=== PATIENT | male | born 1985 | race Caucasian/White ===

== ENCOUNTER 2017-07-30 21:49 | Emergency (ER) | payer OTHER ==
[2017-07-30 22:09] VITALS: BP 144/85; PULSE 67; RESP 17; TEMP 97.2
--- NOTE | 2017-07-30 22:18 | ED ---
ENT HPI - General Chief complaint: ENT Stated complaint: Ear Pain Time Seen by Provider: 07/30/17 22:02 Source: patient, family, RN notes reviewed, old records reviewed Mode of arrival: ambulatory Limitations: no limitations - History of Present Illness Initial comments: This is a 32 year old male with CC of right ear pain for 2 days. Patient reports that his ear feels full, and having a hard time hearing out of it. Patient states that he has had a history of an ear infection a year ago, and does not want to go through the same pain again. Patient denies any fever, reports that he has not tried to clean his ears. Patient denies any cough, shorntess of breath, nausea, vomiting. - Related Data Previous Rx's Medication Instructions Recorded Hydrocodone/Acetaminophen [[place] 1 each PO Q6HR PRN #10 tab 06/08/15 5-325] Amoxic-Pot Clav 875-125Mg 1 tab PO Q12HR #20 tablet 07/30/17 [Augmentin 875-125] Ciprofloxacin Ophth Soln [Cipro 10 drops RIGHT EAR BID #1 bottle 07/30/17 Ophth Soln] Allergies Allergy/AdvReac Type Severity Reaction Status Date / Time No Known Allergies Allergy Verified 07/30/17 22:10 Review of Systems ROS Statement: Those systems with pertinent positive or pertinent negative responses have been documented in the HPI. ROS Other: All systems not noted in ROS Statement are negative. 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 Limitations: no limitations General appearance: alert, in no apparent distress Head exam: Present: atraumatic, normocephalic, normal inspection Eye exam: Present: normal appearance, PERRL, EOMI. Absent: scleral icterus, conjunctival injection, periorbital swelling ENT exam: Present: normal exam, mucous membranes moist, normal external ear exam. Absent: TM's normal bilaterally (erythematous Right TM. Bulging, effusion noted. ) Neck exam: Present: normal inspection. Absent: tenderness, meningismus, lymphadenopathy Respiratory exam: Present: normal lung sounds bilaterally. Absent: respiratory distress, wheezes, rales, rhonchi, stridor Cardiovascular Exam: Present: regular rate, normal rhythm, normal heart sounds. Absent: systolic murmur, diastolic murmur, rubs, gallop, clicks GI/Abdominal exam: Present: soft, normal bowel sounds. Absent: distended, tenderness, guarding, rebound, rigid Extremities exam: Present: normal inspection, full ROM, normal capillary refill. Absent: tenderness, pedal edema, joint swelling, calf tenderness Back exam: Present: normal inspection Neurological exam: Present: alert, oriented X3, CN II-XII intact Psychiatric exam: Present: normal affect, normal mood Skin exam: Present: warm, dry, intact, normal color. Absent: rash Course Vital Signs 07/30/17 22:02 Temperature 97.2 F L Pulse Rate 67 Respiratory 17 Rate Blood Pressure 144/85 O2 Sat by Pulse 97 Oximetry Medical Decision Making - Medical Decision Making This is a 32 year old male with CC of right ear pain for 2 days. Patient reports that his ear feels full, and having a hard time hearing out of it. Patient does have erythematous right TM. No evdience of perforation. Patent will be started on antibiotics. Discussed taking decongestants. REturn parameters discussed. Disposition Clinical Impression: Right otitis media Disposition: HOME SELF-CARE Condition: Good Instructions: Earache (ED) Additional Instructions: Is advised to take decongestant medications such as Mucinex DM or Claritin-D. Patient should completely antibiotic prescription. Return to the emergency department if any alarming signs or symptoms occur. Prescriptions: Amoxic-Pot Clav 875-125Mg [Augmentin 875-125] 1 tab PO Q12HR #20 tablet Ciprofloxacin Ophth Soln [Cipro Ophth Soln] 10 drops RIGHT EAR BID #1 bottle Referrals: None,Stated [Primary Care Provider] - 1-2 days Scout Huntley MD [STAFF PHYSICIAN] - 1-2 days Time of Disposition: 22:16
== END 2017-07-30 22:30 | disposition home or self-care (01) ==
LOC: EC 21:49
DX: H66.91 Otitis media, unspecified, right ear (principal); F17.200 Nicotine dependence, unspecified, uncomplicated
CPT/HCPCS: 99283

== ENCOUNTER 2019-09-09 17:44 | Emergency (ER) | payer OTHER ==
[2019-09-09 17:48] VITALS: BP 122/82; PULSE 87; RESP 20; TEMP 98.5
--- NOTE | 2019-09-09 18:00 | ED ---
General Adult HPI - General Chief complaint: Fever Stated complaint: hot and cold sweats, has pace maker, fever Time Seen by Provider: 09/09/19 17:53 Source: patient Mode of arrival: ambulatory Limitations: no limitations - History of Present Illness Initial comments: Dictation was produced using [employer] dictation software. please excuse any grammatical, word or spelling errors. Chief Complaint: 34-year-old male presents with URI symptoms for 2 days. History of Present Illness: 34-year-old male with past medical history of pacemaker. Patient states that he's been feeling sick for the last 48 hours. Patient significant other has similar symptoms. He went to play baseball today however felt too sick. Patient had a runny nose, productive cough. Denies chest pain. Probably short of breath. Patient also has body aches. Patient denies any nausea vomiting. No abdominal pain. Distally chills and fever at home. Patient has not been taking any medications to treat this. The ROS documented in this emergency department record has been reviewed and confirmed by me. Those systems with pertinent positive or negative responses have been documented in the HPI. All other systems are other negative and/or noncontributory. PHYSICAL EXAM: General Impression: Alert and oriented x3, not in acute distress HEENT: Normocephalic atraumatic, extra-ocular movements intact, pupils equal and reactive to light bilaterally, mucous membranes moist, mild oropharyngeal erythema, rhinorrhea present Cardiovascular: Heart regular rate and rhythm, S1&S2 audible, no murmurs, rubs or gallops Chest: Lungs clear to auscultation bilaterally, no rhonchi, no wheeze, no rales Abdomen: Bowel sounds present, abdomen soft, non-tender, non-distended, no organomegaly Musculoskeletal: Pulses present and equal in all extremities, no peripheral edema Motor: no focal deficits noted Neurological: CN II-XII grossly intact, no focal motor or sensory deficits noted Skin: Intact with no visualized rashes Psych: Normal affect and mood ED course: 34 yoOld male with clinical presentation consistent with viral URI. Vital signs upon arrival are within acceptable limits. Chest x-ray which was reviewed by myself showed no findings to suggest pneumonia. Other acute findings. Patient given prescription for azithromycin to be used in a watch and wait fashion. Patient told to begin taking antibiotics in 3-4 days if his symptoms aren't improving. Rapid strep test is negative. Otherwise he is instructed to follow-up with primary care physician upon discharge. - Related Data Previous Rx's Medication Instructions Recorded Hydrocodone/Acetaminophen [[place] 1 each PO Q6HR PRN #10 tab 06/08/15 5-325] Amoxic-Pot Clav 875-125Mg 1 tab PO Q12HR #20 tablet 07/30/17 [Augmentin 875-125] Ciprofloxacin Ophth Soln [Cipro 10 drops RIGHT EAR BID #1 bottle 07/30/17 Ophth Soln] Azithromycin [Zithromax Z-pack] 0 mg PO DIRECTED #6 tab 09/09/19 Allergies Allergy/AdvReac Type Severity Reaction Status Date / Time No Known Allergies Allergy Verified 09/09/19 17:48 Review of Systems ROS Statement: Those systems with pertinent positive or pertinent negative responses have been documented in the HPI. ROS Other: All systems not noted in ROS Statement are negative. 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 History of Any Multi-Drug Resistant Organisms: None Reported Past Surgical History: Pacemaker Additional Past Surgical History / Comment(s): Pacemaker Past Psychological History: No Psychological Hx Reported Smoking Status: Current every day smoker Past Alcohol Use History: Occasional Past Drug Use History: None Reported General Exam Limitations: no limitations Course Vital Signs 09/09/19 17:45 Temperature 98.5 F Pulse Rate 87 Respiratory 20 Rate Blood Pressure 122/82 O2 Sat by Pulse 99 Oximetry Medical Decision Making - Lab Data Lab Results 09/09/19 Range/Units 18:06 Group A Strep Rapid Negative (Negative) Disposition Clinical Impression: URI (upper respiratory infection) Disposition: HOME SELF-CARE Condition: Good Instructions (If sedation given, give patient instructions): Fever in Adults (ED) Prescriptions: Azithromycin [Zithromax Z-pack] 0 mg PO DIRECTED #6 tab Is patient prescribed a controlled substance at d/c from ED?: No Referrals: None,Stated [Primary Care Provider] - 1-2 days Time of Disposition: 18:01
--- NOTE | 2019-09-09 18:14 | XR ---
EXAMINATION TYPE: XR chest 1V portable DATE OF EXAM: 09/09/2019 COMPARISON: 08/10/2011 HISTORY: Fever and cough TECHNIQUE: Single frontal view of the chest is obtained. FINDINGS: Heart and mediastinum are normal. Lungs are clear. Diaphragm is normal. Bony thorax appear s normal. There is a left axillary pacemaker. IMPRESSION: No active cardiopulmonary disease. Normal heart.
[2019-09-09] MEDS ORDERED: KETOROLAC 30 MG/ML 1 ML VIAL IM STA (18:38)
== END 2019-09-09 18:32 | disposition home or self-care (01) ==
LOC: EC 17:44
DX: J06.9 Acute upper respiratory infection, unspecified (principal); I45.6 Pre-excitation syndrome; I25.2 Old myocardial infarction; F17.200 Nicotine dependence, unspecified, uncomplicated; Z95.0 Presence of cardiac pacemaker
CPT/HCPCS: 87081; 87430; 71045; 99283; 96372; J1885

== ENCOUNTER 2019-12-07 19:54 | Emergency (ER) | payer OTHER ==
[2019-12-07 19:58] VITALS: TEMP 98.2
[2019-12-07] MEDS ORDERED: guaiFENesin-Coden 100-10MG/5ML 10 ML CUP PO STA (20:39)
[2019-12-07] MEDS ORDERED: IPRATROPIUM-ALBUTEROL 3 ML NEB INHALATION STA (20:39)
[2019-12-07] MEDS ORDERED: predniSONE 50 MG TAB PO STA (20:39)
--- NOTE | 2019-12-07 20:57 | ED ---
General Adult HPI - General Chief complaint: Upper Respiratory Infection Stated complaint: Poss pneumonia Time Seen by Provider: 12/07/19 20:24 Source: patient Mode of arrival: ambulatory Limitations: no limitations - History of Present Illness Initial comments: 34-year-old male patient presents to the emergency department today for evaluation of cough and congestion. Patient states he's had a cough for the last week. Patient states initially he was coughing up yellow to green sputum. States today the sputum has decreased however he feels like he is building fluid in his lungs. States he is becoming short of breath with this. Denies any chest pain or abdominal pain. Denies any dizziness or weakness. Patient did have asthma as a child but states that has resolved. He does admit to smoking. He does have history of [id number] and does have a pacemaker. Denies fever or chills. Denies nasal congestion or drainage. Patient denies any recent rash, chest pain, abdominal pain, nausea, vomiting, diarrhea, constipation, back pain, numbness, tingling, dizziness, weakness, hematuria, dysuria, urinary urgency, urinary frequency, headache, visual changes, or any other complaints. - Related Data Previous Rx's Medication Instructions Recorded Azithromycin [Zithromax Z-pack] 0 mg PO DIRECTED #6 tab 09/09/19 Albuterol Sulfate [Proair Hfa] 1 - 2 puff INHALATION Q6HR PRN #1 12/07/19 inhaler Ipratropium-Albuterol Nebulize 3 ml INHALATION Q4H PRN #30 neb 12/07/19 [Duoneb 0.5 mg-3 mg/3 ml Soln] predniSONE 50 mg PO DAILY #5 tablet 12/07/19 Allergies Allergy/AdvReac Type Severity Reaction Status Date / Time No Known Allergies Allergy Verified 09/09/19 18:37 Review of Systems ROS Statement: Those systems with pertinent positive or pertinent negative responses have been documented in the HPI. ROS Other: All systems not noted in ROS Statement are negative. 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 Vital signs upon presentation are temperature 98.2F, pulse 93, respirations 20, blood pressure 124/78, pulse ox 97% on room air.) Eye exam: Present: normal appearance, PERRL, EOMI. Absent: scleral icterus, conjunctival injection, periorbital swelling ENT exam: Present: normal exam, normal oropharynx, mucous membranes moist, TM's normal bilaterally Respiratory exam: Present: wheezes (Course expiratory wheezing noted in the posterior lung mills). Absent: normal lung sounds bilaterally, respiratory distress, rales, rhonchi, stridor Cardiovascular Exam: Present: regular rate, normal rhythm, normal heart sounds. Absent: systolic murmur, diastolic murmur, rubs, gallop, clicks Neurological exam: Present: alert, oriented X3, CN II-XII intact Psychiatric exam: Present: normal affect, normal mood Skin exam: Present: warm, dry, intact, normal color. Absent: rash Course Vital Signs 12/07/19 12/07/19 12/07/19 19:55 20:11 21:05 Temperature 98.2 F Pulse Rate 93 94 Respiratory 20 20 Rate Blood Pressure 124/78 O2 Sat by Pulse 97 Oximetry 12/07/19 12/07/19 21:21 22:19 Temperature Pulse Rate 94 93 Respiratory 18 Rate Blood Pressure 125/79 O2 Sat by Pulse 96 Oximetry Medical Decision Making - Medical Decision Making 34-year-old male patient presents to the emergency department today for evaluation of cough and shortness of breath. Physical examination did reveal coarse expiratory wheezing in the posterior lung mills. Oxygen saturation was between 97-99% on room air. He was given a DuoNeb breathing treatment and a dose of steroids. Upon reevaluation he reports significant improvement in symptoms. Lungs are now clear. Chest x-ray showed no acute cardiopulmonary process. Symptoms are consistent with acute bronchitis and bronchospasm. He'll be treated with a burst dose of prednisone. Given a Pro Air inhaler and prescr iption for DuoNeb treatments at home. He does have access to a nebulizer machine. He'll be discharged to follow-up with his primary care physician for recheck in 1-2 days. Return parameters were discussed in detail. He verbalizes understanding and agrees with this plan. - Radiology Data Radiology results: report reviewed, image reviewed Two-view x-ray of the chest is obtained. Report was reviewed in its entirety. Impression by Dr. Restrepo shows normal chest. No change. Disposition Clinical Impression: Acute bronchitis, Bronchospasm Disposition: HOME SELF-CARE Condition: Good Instructions (If sedation given, give patient instructions): Acute Bronchitis (ED), Bronchospasm (ED) Additional Instructions: Take medications as directed. Follow-up with your primary care physician for recheck in 1-2 days. Return to the emergency department immediately for any new, worsening, or concerning symptoms. Prescriptions: Ipratropium-Albuterol Nebulize [Duoneb 0.5 mg-3 mg/3 ml Soln] 3 ml INHALATION Q4H PRN #30 neb PRN Reason: Wheezing/Shortness of breath predniSONE 50 mg PO DAILY #5 tablet Albuterol Sulfate [Proair Hfa] 1 - 2 puff INHALATION Q6HR PRN #1 inhaler PRN Reason: Shortness Of Breath Is patient prescribed a controlled substance at d/c from ED?: No Referrals: None,Stated [Primary Care Provider] - 1-2 days Time of Disposition: 22:11
--- NOTE | 2019-12-07 21:03 | XR ---
EXAMINATION TYPE: XR chest 2V DATE OF EXAM: 12/07/2019 COMPARISON: 09/09/2019 HISTORY: Fever TECHNIQUE: FINDINGS: Heart and mediastinum are normal. Lungs are clear. Diaphragm is normal. There is a left axi llary pacemaker. Bony thorax is intact. IMPRESSION: Normal chest. No change.
[2019-12-07 22:21] VITALS: BP 125/79; PULSE 93; RESP 18
== END 2019-12-07 22:20 | disposition home or self-care (01) ==
LOC: EC 19:54
DX: J20.9 Acute bronchitis, unspecified (principal); I25.2 Old myocardial infarction; F17.200 Nicotine dependence, unspecified, uncomplicated; Z95.0 Presence of cardiac pacemaker
CPT/HCPCS: 94640; 71046; 99285; J7512

== ENCOUNTER 2019-12-31 01:46 | Emergency (ER) | payer OTHER ==
[2019-12-31 01:59] VITALS: BP 135/75; RESP 18; TEMP 98
[2019-12-31] MEDS ORDERED: predniSONE 20 MG TAB PO STA (02:07)
[2019-12-31] MEDS ORDERED: ALBUTEROL NEBULIZED 2.5 MG/3 ML INHALATION STA (02:07)
[2019-12-31 02:25] VITALS: PULSE 77
--- NOTE | 2019-12-31 02:47 | XR ---
EXAMINATION TYPE: XR chest 2V DATE OF EXAM: 12/31/2019 COMPARISON: 12/07/2019 HISTORY: Cough TECHNIQUE: FINDINGS: Heart and mediastinum are normal. Lungs are clear of infiltrate. There is no heart failure. There is a left axillary pacemaker. Diaphragm is normal. Bony thorax is intact. IMPRESSION: No active cardiopulmonary disease. Normal heart. No change.
--- NOTE | 2019-12-31 03:36 | ED ---
URI HPI - General Chief Complaint: Upper Respiratory Infection Stated Complaint: LUIS Time Seen by Provider: 12/31/19 02:03 Source: patient Mode of arrival: ambulatory Limitations: no limitations - History of Present Illness MD Complaint: cough -: days(s) Consistency: constant Improves With: nothing Worsens With: nothing Associated Symptoms: nasal congestion, cough, shortness of breath Treatments Prior to Arrival: none - Related Data Previous Rx's Medication Instructions Recorded Azithromycin [Zithromax Z-pack] 0 mg PO DIRECTED #6 tab 09/09/19 Albuterol Sulfate [Proair Hfa] 1 - 2 puff INHALATION Q6HR PRN #1 12/07/19 inhaler Ipratropium-Albuterol Nebulize 3 ml INHALATION Q4H PRN #30 neb 12/07/19 [Duoneb 0.5 mg-3 mg/3 ml Soln] predniSONE 50 mg PO DAILY #5 tablet 12/07/19 Albuterol Inhaler [Ventolin Hfa 1 - 2 puff INHALATION Q6HR PRN #1 12/31/19 Inhaler] inhaler predniSONE 60 mg PO DAILY #30 tab 12/31/19 Allergies Allergy/AdvReac Type Severity Reaction Status Date / Time No Known Allergies Allergy Verified 12/31/19 01:59 Review of Systems ROS Statement: Those systems with pertinent positive or pertinent negative responses have been documented in the HPI. ROS Other: All systems not noted in ROS Statement are negative. 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 Absent: scleral icterus, conjunctival injection ENT exam: Present: normal oropharynx Neck exam: Present: normal inspection Respiratory exam: Present: wheezes. Absent: respiratory distress, rales, r honchi, stridor Cardiovascular Exam: Present: regular rate, normal rhythm, normal heart sounds. Absent: systolic murmur, diastolic murmur, rubs, gallop GI/Abdominal exam: Present: soft. Absent: distended, tenderness, guarding, rebound, rigid Extremities exam: Present: normal inspection, normal capillary refill. Absent: pedal edema, calf tenderness Back exam: Present: normal inspection. Absent: CVA tenderness (R), CVA tenderness (L) Neurological exam: Present: alert Skin exam: Present: warm, dry, intact, normal color. Absent: rash Course Vital Signs 12/31/19 12/31/19 12/31/19 01:56 02:19 02:24 Temperature 98.0 F Pulse Rate 75 77 Respiratory 18 18 Rate Blood Pressure 135/75 O2 Sat by Pulse 95 Oximetry 12/31/19 02:40 Temperature Pulse Rate 77 Respiratory Rate Blood Pressure O2 Sat by Pulse Oximetry Disposition Clinical Impression: Acute bronchitis Disposition: HOME SELF-CARE Condition: Good Instructions (If sedation given, give patient instructions): Acute Bronchitis (ED) Prescriptions: predniSONE 60 mg PO DAILY #30 tab Albuterol Inhaler [Ventolin Hfa Inhaler] 1 - 2 puff INHALATION Q6HR PRN #1 inhaler PRN Reason: Wheezing Is patient prescribed a controlled substance at d/c from ED?: No Referrals: None,Stated [Primary Care Provider] - 1-2 days
== END 2019-12-31 04:13 | disposition home or self-care (01) ==
LOC: EC 01:46
DX: J20.9 Acute bronchitis, unspecified (principal); I25.2 Old myocardial infarction; F17.200 Nicotine dependence, unspecified, uncomplicated; Z95.0 Presence of cardiac pacemaker
CPT/HCPCS: 94640; 71046; 99285; J7512

== ENCOUNTER → 2020-04-25 | Outpatient (CLI) | payer OTHER | END | disposition home or self-care (01) | LOC: LABWHC1 10:21 | PROVIDERS: ATTEND Internal Medicine Clinical Cardiac Electrophysiology | DX: Z11.59 Encounter for screening for other viral diseases (principal) ==

== ENCOUNTER 2020-04-28 06:58 | Day surgery (SDC) | payer OTHER ==
[2020-04-25 14:21] VITALS: BMI 31.6
[~2020-04-28 06:58] MED LIST: LACTATED RINGERS 1,000 ML IV SCH; SODIUM CHLORIDE 0.9% 1,000 ML IV SCH; ceFAZolin 1,000 MG in SODIUM CHLORIDE 0.9% IRRIGATIO 250 ML IRRIGATION ONE
[2020-04-28] MEDS ORDERED: SODIUM CHLORIDE 0.9% 1,000 ML IV ONE (07:17)
[2020-04-28 07:40] VITALS: RESP 16; TEMP 97.8
[2020-04-28 07:42] LABS: Basophils # (A) 0.1 k/uL (0-0.2); Basophils % (A) 1 %; Eosinophils # (A) 0.3 k/uL (0-0.7); Eosinophils % (A) 3 %; HCT 51.7 % (39.0-53.0); HGB 17.1 gm/dL (13.0-17.5); Lymphocytes % (A) 26 %; MCH 30.3 pg (25.0-35.0); MCHC 33.1 g/dL (31.0-37.0); MCV 91.5 fL (80.0-100.0); Mean Platelet Volume 7.7; Monocytes # (A) 0.7 k/uL (0-1.0); Monocytes % (A) 6 %; Neutrophils # (A) 7.5 k/uL (1.3-7.7); Neutrophils % (A) 64 %; Platelet Count 297 k/uL (150-450); RBC 5.65 m/uL (4.30-5.90); WBC 11.8 k/uL (3.8-10.6)
[2020-04-28 08:02] LABS: African American GFR (CKD) >90 (>60 ml/min/1.73 sqM); Anion Gap 8 mmol/L; Blood Urea Nitrogen 13 mg/dL (9-20); Calcium 9.3 mg/dL (8.4-10.2); Carbon Dioxide 26 mmol/L (22-30); Chloride 105 mmol/L (98-107); Glucose 91 mg/dL (74-99); Non-African American GFR(CKD) >90 (>60 ml/min/1.73 sqM); Potassium 4.3 mmol/L (3.5-5.1); Sodium 139 mmol/L (137-145)
[2020-04-28] MEDS ORDERED: diphenhydrAMINE 50 MG/ML 1 ML VIAL ONE (08:10)
[2020-04-28] MEDS ORDERED: fentaNYL (PF) 50 MCG/ML 2 ML AMP ONE (08:10)
[2020-04-28] MEDS ORDERED: MIDAZOLAM 2 MG/2 ML VIAL ONE (08:10)
[2020-04-28] MEDS ORDERED: PROPOFOL 10 MG/ML 20 ML VIAL IV ONE (08:10)
[2020-04-28] MEDS ORDERED: IOPAMIDOL-250 50ML BTL IV ONE (08:28)
[2020-04-28] MEDS ORDERED: VANCOMYCIN 1,000 MG in SODIUM CHLORIDE 0.9% 250 ML IVPB STA (08:54)
[2020-04-28] MEDS ORDERED: LIDOCAINE 1% INJ 10MG/ML (20 ML MDV) SQ ONE (08:56)
--- NOTE | 2020-04-28 11:25 | P.PCN ---
Preoperative Diagnosis: Left upper extremity venogram 15 mL of IV dye injection the left upper extremity Collaterals noted Occluded subclavian vein, partially Attempt lateral extrathoracic axillary access for upgrade to a biventricular pacemaker This vein will require dilatation on account of that stenosis Venoplasty Once extrathoracic axillary vein access was obtained, serial dilatation of the intrathoracic axillary and subclavian veins was performed with dilators of increasing size N8 [place]ese sheath was then placed in the vein Via this, the third lead was placed for His bundle mapping with appropriate sheaths
--- NOTE | 2020-04-28 11:39 | P.PCN ---
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 Serial dilatation was performed with dilators to accommodate for the sheath Thereafter with a His bundle sheath mapping of the His bundle was performed This was a long as for the procedure Pace mapping was performed to map the His bundle since patient had complete heart block When his pacemaker was programmed to VVI 40, and intrinsic right bundle branch block was noted The His bundle was then identified but stability was an issue It took multiple attempts for over an hour to find a stable position Finally the stable position revealed a His bundle spike within HV interval of from 35-40 ms with a large ventricular injury current At this site the lead is very stable and selective capture was noted with loss of selective pacing at 2 V at 1 ms Subsequently nonselective capture was noted with loss at 1 V at 1 ms
[2020-04-28] MEDS ORDERED: ACETAMINOPHEN TAB 325 MG TAB PO PRN (11:40)
[2020-04-28] MEDS ORDERED: HYDROcodone/APAP 5-325MG 1 EACH TAB PO PRN (11:40)
[2020-04-28] MEDS ORDERED: ACETAMINOPHEN IV (For NPO) 1,000 MG in EMPTY BAG 1 BAG IVPB ONE (11:40)
[2020-04-28] MEDS ORDERED: INDOMETHACIN 25 MG CAP PO ONE (12:14)
[2020-04-28] MEDS ORDERED: ONDANSETRON 4 MG/2 ML VIAL IVP STA (12:15)
[2020-04-28] MEDS ORDERED: ONDANSETRON 4 MG/2 ML VIAL ONE (12:17)
--- NOTE | 2020-04-28 14:54 | XR ---
EXAMINATION TYPE: XR chest 2V DATE OF EXAM: 04/28/2020 COMPARISON: Prior chest x-ray 12/31/2019 HISTORY: Lead placement check TECHNIQUE: Frontal and lateral views of the chest are obtained. FINDINGS: There is been interval change of a generator in the left pectoral region. Interval placeme nt of an additional lead likely within the right heart. IMPRESSION: Lead placement as described, interval change in the generator
[2020-04-28 15:31] VITALS: BP 110/72; PULSE 61
--- NOTE | 2020-04-29 01:30 | CE ---
CARDIAC ELECTROPHYSIOLOGY REPORT Mr. 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 His device is at [facility]. He has a mildly reduced LV systolic function of about 45% on account of 100% RV pacing secondary to complete heart block. First a venogram was performed. Subsequently, venoplasty was performed. Thereafter His bundle mapping was performed. After access of vein and venoplasty and placement of the sheath, the His bundle sheath was placed. The His bundle lead was placed mapping of the His bundle was performed, pace mapping was performed. This was a long difficult part of the procedure and while the pace mapping as well as His bundle mapping revealed the site of a good signal with selective capture, stability was an issue. Finally, after over an hour, a good very stable position was achieved with an HV interval of about 35 to 40 milliseconds and a large ventricular current of injury. The sheath was removed. The leads remained very stable with deep breathing and the sheath was removed. The lead was secured to the underlying pectoralis muscle and the old generator, Biotronik, was removed. The new generator was implanted. The new generator was a [employer] INSTALLER P Medtronic model number W1TR02, serial number [id number]. The His bundle lead was a Medtronic model number 3830, 69 cm in length and serial number [id number]. The selective capture was noted down to 2 V at 1 millisecond and thereafter nonselective capture was noted. Pacing impedance of 760 ohms, R-waves of 4.6 mV with large current of injury and an HV interval of 35 to 40 milliseconds. The P waves were 4.8 mV. Pacing impedance of 418 ohms. Pacing threshold 0.75 V at 0.4 milliseconds. The RV sensing was 7 mV. Right bundle branch block, complete heart block. Pacing impedance of 475 ohms, pacing threshold 0.75 V at 0.4 milliseconds. The new generator was placed in subfascial pocket. The wound was closed in 3 layers and dressed per protocol. RESULTS: Successful upgrade to a biventricular pacemaker with His bundle pacing for underlying complete heart block with right bundle branch block escape rhythm with mild cardiomyopathy on account of 100% RV pacing and a normal stress test. PLAN: Continue metoprolol. Continue low-dose lisinopril and reassess the LV function in about 6 to 8 weeks. MMODL / IJN: [id number] /
== END 2020-04-28 13:58 | disposition home or self-care (01) ==
LOC: CATHEP 06:58 → 1SOBS 10:45 → CATHEP 10:45
PROVIDERS: ATTEND Internal Medicine Clinical Cardiac Electrophysiology
DX: I44.2 Atrioventricular block, complete (principal); Z45.018 Encounter for adjustment and management of other part of cardiac pacemaker; I42.0 Dilated cardiomyopathy; I45.10 Unspecified right bundle-branch block; I82.B12 Acute embolism and thrombosis of left subclavian vein; I45.6 Pre-excitation syndrome; Z86.79 Personal history of other diseases of the circulatory system; Z98.890 Other specified postprocedural states; Z72.0 Tobacco use; Z82.49 Family history of ischemic heart disease and other diseases of the circulatory system
CPT/HCPCS: 33225; 33229; 80048; 85025; 71046; C1769 ×3; C1892 ×2; C1898; C2621; J2250; J3370; J1200; J0690 ×2; J2405; J2001; J3010; J0131; J2704; Q9966; 33264

== ENCOUNTER → 2022-01-26 | Outpatient (CLI) | payer OTHER | END | disposition home or self-care (01) | LOC: LABPAT 14:33 | PROVIDERS: ATTEND Internal Medicine Clinical Cardiac Electrophysiology | DX: Z53.9 Procedure and treatment not carried out, unspecified reason (principal) ==

== ENCOUNTER → 2022-01-26 | Outpatient (CLI) | payer OTHER ==
[2022-01-27 00:01] LABS: HCT 51.6 % (39.6-50.0); HGB 17.6 g/dL (13.0-17.0); MCH 31.3 pg (27.0-32.0); MCHC 34.1 g/dL (32.0-37.0); MCV 91.8 fL (80.0-97.0); Mean Platelet Volume 11.1 fL (9.5-12.2); NRBC Per 100 WBC 0 /100 WBCS (0.0-0.0); Platelet Count 337 X 10*3/uL (140-440); RBC 5.62 X 10*6/uL (4.40-5.60); RDW 11.9 % (11.5-14.5)
[2022-01-27 01:59] LABS: ALT 40 U/L (10-49); AST 19 U/L (14-35); African American GFR (CKD) 142.7 (60.0-200.0); Albumin 4.8 g/dL (3.8-4.9); Albumin/Globulin Ratio 2.29 (1.60-3.17); Alkaline Phosphatase 70 U/L (41-126); BUN/Creat Ratio 18.14 Ratio (12.00-20.00); Blood Urea Nitrogen 12.7 mg/dL (9.0-27.0); Calcium 9.8 mg/dL (8.7-10.3); Carbon Dioxide 22.3 mmol/L (20.0-27.5); Chloride 100 mmol/L (96-109); Chol/HDL Ratio 5.21 Ratio; Globulin 2.1 g/dL (1.6-3.3); Glucose 113 mg/dL (70-110); LDL Cholesterol,Calculated 90.7 mg/dL (0.0-131.0); Magnesium 1.9 mg/dL (1.5-2.4); Non-African American GFR(CKD) 123.1 (60.0-200.0); Potassium 4.2 mmol/L (3.5-5.5); Sodium 139 mmol/L (135-145); Total Protein 6.9 g/dL (6.2-8.2)
[2022-01-27 12:57] LABS: Coronavirus SARS CoV-2 Not Detected (Not Detected)
== END | disposition home or self-care (01) ==
LOC: LABWHC1 14:30
PROVIDERS: ATTEND Nurse Practitioner Adult Health
DX: Z20.822 Contact with and (suspected) exposure to COVID-19 (principal); I42.0 Dilated cardiomyopathy; I10 Essential (primary) hypertension; I48.0 Paroxysmal atrial fibrillation
CPT/HCPCS: 80061; 80053; 84443; 83735; 85027; 36415; U0003

== ENCOUNTER 2022-02-01 07:58 | Day surgery (SDC) | payer OTHER ==
[2022-01-29 09:16] VITALS: BMI 32.6
[~2022-02-01 07:58] MED LIST changes: -ceFAZolin 1,000 MG in SODIUM CHLORIDE 0.9% IRRIGATIO 250 ML IRRIGATION ONE
[2022-02-01] MEDS ORDERED: HEPARIN SODIUM,PORCINE 10,000 UNIT/ML 1 ML VIAL ONE (09:38)
[2022-02-01] MEDS ORDERED: MIDAZOLAM 2 MG/2 ML VIAL ONE (09:38)
[2022-02-01] MEDS ORDERED: PROTAMINE SULFATE 10 MG/ML 5 ML VIAL IV ONE (09:38)
[2022-02-01] MEDS ORDERED: SUCCINYLCHOLINE CHLORIDE 100 MG/5 ML SYR IV ONE (09:38)
[2022-02-01] MEDS ORDERED: ISOPROTERENOL 250 MCG/1.25 ML SYR IV ONE (09:38)
[2022-02-01] MEDS ORDERED: HYDROmorphone (PF) 1 MG/ML ONE (09:38)
[2022-02-01] MEDS ORDERED: fentaNYL (PF) 50 MCG/ML 2 ML AMP ONE (09:38)
[2022-02-01] MEDS ORDERED: PROPOFOL 10 MG/ML 20 ML VIAL IV ONE (09:38)
[2022-02-01] MEDS ORDERED: LIDOCAINE 1% INJ 10MG/ML (20 ML MDV) ONE (10:11)
[2022-02-01] MEDS ORDERED: HEPARIN SOD,PORK IN 0.45% NACL 25,000 UNIT in 0.45% NACL 1 250ML.BAG IV ONE (10:45)
[2022-02-01] MEDS ORDERED: LIDOCAINE 1% INJ 10MG/ML (20 ML MDV) SQ ONE (10:48)
[2022-02-01] MEDS ORDERED: LACTATED RINGERS 1,000 ML IV ONE (12:35)
[2022-02-01] MEDS ORDERED: IOPAMIDOL-370 100ML BTL INJ ONE ×2 (12:40)
[2022-02-01] MEDS ORDERED: ACETAMINOPHEN TAB 325 MG TAB PO PRN (13:02)
--- NOTE | 2022-02-01 13:18 | P.HPCAR ---
History of Present Illness This is Dr. 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 fib ablation EP study thereafter to look for atrial tachycardia Evaluate His bundle lead which has elevated thresholds Evaluate left axillary/subclavian vein and innominate vein HPI Patient complains of recurrent palpitations and shortness of breath He was found to have paroxysms of atrial fibrillation and very rapid atrial tachycardia on pacemaker interrogation His His bundle lead thresholds were excellent initially at less than 1 V at 1.0 ms There has been a gradual increase in the threshold for both the His bundle lead as well as the RV lead After His bundle pacing his LV function has normalized However, the battery life for the by ventricle pacemaker is significantly reduced on account of high energy consumption on account of both the His bundle lead Unfortunately even the backup RV lead has elevated thresholds but he has minimum RV pacing, 80 ms after the His bundle paced beat ROS: No fever chills or rigors, no cough, phlegm or expectoration, no nausea, vomiting or diarrhea, no hematuria, dysuria, no musculoskeletal complaints, no strokes or seizures, no skin lesions. EXAMINATION: Afebrile 98F, RATE 68 beats a minute, blood pressure 141/89 Breath sounds are reduced bilaterally with the no rhonchi no crackles No JVD Normal heart sounds Abdomen is soft 70s are warm REVIEW OF LABS, ECG & MEDICAL DATA coronavirus PCR, nondetectable Physical Exam Vitals: Vital Signs Temp Pulse Resp BP Pulse Ox 02/01/22 08:28 98.0 F 68 16 141/89 96 Intake and Output 01/31/22 02/01/22 02/01/22 22:59 06:59 14:59 Intake Total 1178 Balance 1178 Intake: IV 1178 Other: Weight 97.2 kg Past Medical History Past Medical History: Asthma, GERD/Reflux, Myocardial Infarction (DC) Additional Past Medical History / Comment(s): Darshan paulson. See Dr Zuñiga H&P, Last Myocardial Infarction Date:: 2011 History of Any Multi-Drug Resistant Organisms: None Reported Past Surgical History: Cardiac Ablation, Heart Catheterization, Pacemaker Additional Past Surgical History / Comment(s): . Past Anesthesia/Blood Transfusion Reactions: Motion Sickness Type of Cardiac Device: Permanent Pacemaker Device Placement Date:: 2011 Smoking Status: Current every day smoker - Past Family History Mother Family Medical History: No Reported History Physical Examination Vital Signs Temp Pulse Resp BP Pulse Ox 02/01/22 08:28 98.0 F 68 16 141/89 96 Intake and Output 01/31/22 02/01/22 02/01/22 22:59 06:59 14:59 Intake Total 1178 Balance 1178 Intake: IV 1178 Other: Weight 97.2 kg Results Current Medications Generic Name Dose Route Start Last Admin Trade Name Freq PRN Reason Stop Dose Admin Acetaminophen 650 mg 02/01/22 13:02 Acetaminophen Tab 325 Mg Tab PO Q6HR PRN Mild Pain Apixaban 5 mg 02/01/22 21:00 Apixaban 5 Mg Tab PO 03/03/22 21:01 BID TAYLOR Protocol Acetaminophen 1,000 mg/ IV 100 mls @ 400 mls/hr 02/01/22 14:00 Solution IVPB 02/01/22 14:14 ONCE ONE Lisinopril 2.5 mg 02/01/22 21:00 Lisinopril 2.5 Mg Tab PO 03/03/22 21:01 HS TAYLOR Pantoprazole Sodium 40 mg 02/01/22 21:00 Pantoprazole 40 Mg Tablet PO 03/03/22 21:01 HS TAYLOR Sodium Chloride 12 ml 02/01/22 21:00 Sodium Chloride 0.9% Flush 10 Ml Syringe IV Q12HR TAYLOR Intake and Output 01/31/22 02/01/22 02/01/22 22:59 06:59 14:59 Intake Total 1178 Balance 1178 Intake: IV 1178 Other: Weight 97.2 kg Patient Weight 02/02/22 06:59 Weight 97.2 kg
--- NOTE | 2022-02-01 13:35 | P.EPPROC ---
- EP Procedure Note Electrophysiology Procedure Note: Biventricular pacemaker with His bundle pacing:Pacemaker interrogation His pacemaker was interrogated prior to the procedure and reprogrammed Atrial threshold is excellent atrial lead impedance is stable Elevated His bundle lead thresholds 2.75 V at 1 ms, nonselective capture Elevated RV thresholds Device reprogrammed to DDD mode for the procedure At the end of the procedure the pacemaker was interrogated and reprogrammed to DDDR mode Pressures His bundle pacing His bundle thresholds stable at 2.75 V at 1 ms nonselective capture Chronically elevated RV thresholds Excellent atrial thresholds Stable impedances Cinefluoroscopy of the lead was performed No fractures or breaks noted His bundle lead in excellent position on cinefluoroscopy Left upper extremity venogram performed 10 mL dye injected in the left arm 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 but still patent The patient needs a new LV lead extraction a His bundle lead at the time of pacemaker generator change I believe that access can be obtained via this occluded left axillary vein with a somewhat central access However access in the coronary sinus may be difficult since he has had extensive ablation in the middle cardio vein/coronary sinus os area Attempt should be made at percutaneous access the coronary sinus from the subclavian venous system If inaccessible or the stenosis at the os then epicardial LV lead placement should be considered I will the time of implant venous access and a CS catheter will be placed at the CS os via the femoral vein
--- NOTE | 2022-02-01 13:41 | P.EPPROC ---
- EP Procedure Note Electrophysiology Procedure Note: PROCEDURE A. fib ablation, PVI DIAGNOSIS Paroxysmal Atrial fibrillation, symptomatic, refractory to therapy RESULT No left atrial appendage mass seen on intracardiac echo Successful A. fib ablation/pulmonary vein isolation of all veins using cryo- ablation, including the PV kang on both sides Complete entrance block in all 4 veins confirmed No evidence for phrenic nerve injury Esophageal deflection YES PROCEDURE DETAILS Patient was brought to the EP lab in a fasting state after obtaining written informed consent. Procedure performed under general anesthesia Esophagus was intubated. Esophageal temperature monitoring with circa catheter. Esophageal deflection with an endoscope to avoid hypothermia of the esophagus. After initial muscle relaxant use, muscle relaxants were not given thereafter in order to assess phrenic nerve during procedure. Patient prepped and draped as p er protocol Cryo ablation-set up with standard preparation of the cryoablation tools done. Femoral Venous access obtained on the right and left groins and sheaths placed Diagnostic catheters for the high right atrium, phrenic nerve stimulation and pacing, His bundle, coronary sinus placed Intracardiac echo catheter placed. Long sheath placed in the right atrium Left and right transseptal catheterization performed under intracardiac echo guidance. Intravenous heparin with aCT above 300 Later, catheter positioning and balloon positioning in the left atrium and pulmonary veins, under intracardiac echo guidance Diagnostic EP study with coronary sinus pacing and recording Baseline measurements: Transseptal catheterization performed RA pressure 16/13/14 LA pressure 18/8/12 Transseptal catheterization performed with standard sheath. The cryoablation sheath was then placed with an over the wire exchange without any acute complications. The cryoablation balloon was placed in the office of each pulmonary vein and all 4 pulmonary veins were isolated. IV dye was injected to confirm occlusion. Goal: achieve complete occlusion of the pulmonary vein, achieve -30 degrees C at 30 seconds and achieve -40 degrees C at 60 seconds and a time to effect of less than 60 seconds. If not, the balloon was repositioned to obtain this result After completion of Cryoblation with durations from 180-240 seconds, entrance block was confirmed with the Attain circular catheter in a roving fashion around the antrum of the pulmonary veins Phrenic nerve pacing was performed from the SVC, right innominate vein area and diaphragm voltage was monitored. Diaphragmatic contractions were also monitored manually for strength of contraction. At the end of the procedure the Achieve catheter was once again used to check for entrance block Phrenic nerve stimulation was performed to confirm diaphragmatic stimulation the end of the procedure Cine fluoroscopy was performed at the very end of the procedure to confirm movement of both diaphragms with inspiration and expiration Cinefluoroscopy was also performed to confirm stable position of the His bundle and the atrial and RV leads. All leads were found to be in stable position Burst stimulation was performed from the high right atrium for 400 ms down to 200 ms. No atrial tachycardia induced Isuprel was started, and burst stimulation was once again performed from the high right atrium from 400 ms down to 200 ms No atrial tachycardia induced At the end of the procedure the patient was extubated Venous sheaths were removed and hemostasis assured with a closure device PROCEDURES PERFORMED Diagnostic EP study with attempted arrhythmia induction CS pacing and recording Left and right transseptal catheterization Catheter the mapping of the tachycardia Intracardiac echocardiography Pulmonary vein isolation with transseptal and comprehensive EPS, [id number] Linear ablation of the kang on the right and left sides Drug infusion, [id number]
[2022-02-01] MEDS: ACETAMINOPHEN IV (For NPO) 1,000 MG in EMPTY BAG 1 BAG IVPB ONE ×2 (13:50→14:05)
--- NOTE | 2022-02-01 15:05 | P.EPPROC ---
- EP Procedure Note Electrophysiology Procedure Note: Procedure: Device interrogation with reprogramming prior to the procedure Cardioversion for atrial fibrillation AV Node Ablation/modification. Device interrogation with reprogramming postprocedure Patient was brought to the EP lab in a fasting state. Written, informed consent was obtained prior to the procedure. Access was obtained, sheath placed in right femoral vein. 1. Preprocedure device interrogation and reprogramming Device interrogation with reprogramming performed. Rate responsiveness was turned off and the pacing rate was reprogrammed to a backup mode prior to ablation. Tachycardia detections turned off. Lead impedance is documented, sensing and pacing thresholds performed prior to the procedure Backup pacing, VVI 40 bpm 2. Electrical cardioversion A 200 J biphasic shock was used to cardiovert the patient to sinus rhythm Thereafter mapping of the AV node was performed, His bundle identified and RF ablation performed Patient was on therapeutic anticoagulation 3. AV node ablation A Mapping/Ablation catheter was placed and right-sided AV node radiofrequency ablation/modification was performed. Complete heart block was achieved with occasional junctional escape rhythm above 40 bpm 4. Device programming postprocedure Atrial pacing threshold 1 warted 0.4 ms. Impedance is stable at 475 ohms RV pacing threshold 1 V at 0.4 ms, pacing impedance 637 ohms LV pacing threshold 1.75 V at 1 ms, pacing impedance of 741 ohms Post ablation, device reprogramming was performed. Base Pacing rate was programmed to 90 bpm. Patient's device was reprogrammed and the interrogated. RF mode turned on Vascular sheaths were removed at the end of the procedure, hemostasis was assured, the patient was then transferred to recovery room/telemetry in stable condition. Conclusions: Successful ablation of the AV node. Plan: Pacing at DDDR 90-130 bpm for at least weeks. Telemetry monitoring for 24 hours. Continue anticoagulation. Patient tolerated the procedure well without any acute complications
[2022-02-01] MEDS ORDERED: ALBUTEROL NEBULIZED 2.5 MG/3 ML INHALATION PRN (16:03)
[2022-02-01] MEDS: HYDROcodone/APAP 5-325MG 1 EACH TAB PO PRN ×2 (16:24→21:57)
[2022-02-01] MEDS: APIXABAN 5 MG TAB PO SCH (20:14)
[2022-02-01] MEDS ORDERED: PANTOPRAZOLE 40 MG TABLET PO SCH (21:00)
[2022-02-01] MEDS ORDERED: ONDANSETRON 4 MG/2 ML VIAL IVP PRN (22:01)
[2022-02-02 03:46] VITALS: RESP 16
[2022-02-02] MEDS: HYDROcodone/APAP 5-325MG 1 EACH TAB PO PRN (06:25)
[2022-02-02] MEDS: APIXABAN 5 MG TAB PO SCH (08:54)
[2022-02-02 09:57] VITALS: BP 110/66; PULSE 82; TEMP 97.8
--- NOTE | 2022-02-02 11:18 | P.DS ---
Providers Attending physician: Rober Zuñiga Primary care physician: Stated None Hospital Course: This is a 36-year-old male who underwent A. fib ablation and pulmonary vein isolation yesterday. Patient is doing well post procedure with no complications noted. The patient was deemed stable for discharge home today per Dr. Zuñiga. He is to follow up on an outpatient basis. Please see EMR for further hospital course details. Discharge diagnosis #1 paroxysmal atrial fibrillation status post A. fib ablation and pulmonary vein isolation Nurse practitioner note has been reviewed by physician. Signing provider agrees with the documented findings, assessment, and plan of care. Plan - Discharge Summary Discharge Rx Participant: Yes New Discharge Prescriptions: New Nicotine 21Mg/24Hr Patch [Habitrol] 1 each TRANSDERM DAILY #14 patch Continue Apixaban [Eliquis] 5 mg PO BID lisinopriL [Zestril] 2.5 mg PO HS Omeprazole 20 mg PO HS Discharge Medication List Apixaban [Eliquis] 5 mg PO BID 01/29/22 [History] Omeprazole 20 mg PO HS 02/01/22 [History] lisinopriL [Zestril] 2.5 mg PO HS 02/01/22 [History] Nicotine 21Mg/24Hr Patch [Habitrol] 1 each TRANSDERM DAILY #14 patch 02/02/22 [Rx] Follow up Appointment(s)/Referral(s): Rober Zuñiga MD [STAFF PHYSICIAN] - 02/12/22 11:45 am (Appointment at main office ) Activity/Diet/Wound Care/Special Instructions: Post EP study - Ablation instructions 1. Keep access sites dry for 2 days. 2. No heavy lifting or straining for 2 days. 3. Avoid bending the hips repeatedly for 2 days. 4. You may go up and down stairs slowly Call if the following is noted 1. Bleeding, increasing swelling or pain at the access sites. 2. Increasing chest discomfort, especially upon taking a deep breath. 3. Increasing shortness of breath, at rest or with exertion. 4. Undue cough / phlegm 5. Difficulty or pain while swallowing. 6. Pain or change in color in the extremities. 7. Fever, chills, rigors. 8. Increasing headache or neurologic symptoms. 9. Dizziness, fainting, palpitations Discharge Disposition: HOME SELF-CARE
== END 2022-02-02 12:20 | disposition home or self-care (01) ==
LOC: CATHEP 07:58 → 6NMEDSUR 12:42 → CATHEP 02-02 12:20
PROVIDERS: ATTEND Internal Medicine Clinical Cardiac Electrophysiology
DX: I48.0 Paroxysmal atrial fibrillation (principal); I10 Essential (primary) hypertension; F17.210 Nicotine dependence, cigarettes, uncomplicated; J45.909 Unspecified asthma, uncomplicated; I25.2 Old myocardial infarction; K21.9 Gastro-esophageal reflux disease without esophagitis; Z20.822 Contact with and (suspected) exposure to COVID-19
CPT/HCPCS: 93623; 93620; 94640; 87635; C1759; C1894 ×2; C1769 ×5; C1760 ×2; C1730 ×2; C1893; C1733; C1766; J2250; J2720; J1644 ×2; J0690; J2405; J2001; J3010; J1170; J0131; J0330; J2704; Q9967

== ENCOUNTER → 2022-10-06 | Outpatient (CLI) | payer OTHER ==
[2022-10-06 14:23] LABS: HCT 51.5 % (39.6-50.0); HGB 17.9 g/dL (13.0-17.0); MCHC 34.8 g/dL (32.0-37.0); MCV 89.3 fL (80.0-97.0); Mean Platelet Volume 10.6 fL (9.5-12.2); NRBC Per 100 WBC 0 /100 WBCS (0.0-0.0); Platelet Count 332 X 10*3/uL (140-440); RBC 5.77 X 10*6/uL (4.40-5.60); WBC 13.58 X 10*3/uL (4.50-10.00)
[2022-10-06 14:54] LABS: African American GFR (CKD) 134.1 (60.0-200.0); Anion Gap 13.2 mmol/L (10.00-18.00); Blood Urea Nitrogen 13.2 mg/dL (9.0-27.0); Carbon Dioxide 24.8 mmol/L (20.0-27.5); Non-African American GFR(CKD) 115.7 (60.0-200.0); Potassium 4.6 mmol/L (3.5-5.5)
== END | disposition home or self-care (01) ==
LOC: LABPAT 10:12
PROVIDERS: ATTEND Internal Medicine Clinical Cardiac Electrophysiology
DX: Z01.812 Encounter for preprocedural laboratory examination (principal); I44.2 Atrioventricular block, complete
CPT/HCPCS: 80051; 82565; 84520; 85027

== ENCOUNTER 2022-10-12 10:22 | Day surgery (SDC) | payer OTHER ==
[2022-10-08 09:56] VITALS: BMI 30.4
[~2022-10-12 10:22] MED LIST changes: +ATROPINE SULFATE 0.4 MG/ML 1 ML VIAL ONE; +GLYCOPYRROLATE 0.2 MG/ML 2 ML VIAL ONE; -LACTATED RINGERS 1,000 ML IV SCH; +NEOSTIGMINE 1 MG/ML 10 ML VIAL ONE; +PROPOFOL 10 MG/ML 20 ML VIAL IV ONE; +ROCURONIUM 10 MG/ML (5 ML VIAL) IV ONE; +SUCCINYLCHOLINE CHLORIDE 200 MG/10 ML VIAL IV ONE; +ePHEDrine 50 MG/ML 1 ML VIAL ONE; +fentaNYL (PF) 50 MCG/ML 2 ML AMP ONE
[2022-10-12] MEDS ORDERED: SODIUM CHLORIDE 0.9% 500 ML 500 ML IV ONE ×2 (10:41→16:57)
[2022-10-12] MEDS ORDERED: VANCOMYCIN 1,250 MG in SODIUM CHLORIDE 0.9% 250 ML IVPB ONE (11:34)
[2022-10-12] MEDS ORDERED: LIDOCAINE 2% INJ 20 MG/ML (2 ML VIAL) ONE (11:40)
[2022-10-12] MEDS ORDERED: PROPOFOL 10 MG/ML 20 ML VIAL IV ONE (11:40)
[2022-10-12] MEDS ORDERED: HYDROmorphone (PF) 1 MG/ML ONE (11:40)
[2022-10-12] MEDS ORDERED: fentaNYL (PF) 50 MCG/ML 2 ML AMP ONE (11:40)
[2022-10-12] MEDS ORDERED: MIDAZOLAM 2 MG/2 ML VIAL ONE (11:40)
[2022-10-12] MEDS ORDERED: IOPAMIDOL-370 50ML BTL INJ ONE ×2 (11:56→15:44)
[2022-10-12] MEDS: ceFAZolin 1 GM in SODIUM CHLORIDE 0.9% IRRIG BTL 250 ML IRRIGATION PRN ×2 (12:08→12:10)
[2022-10-12] MEDS ORDERED: LIDOCAINE 1% INJ 10MG/ML (30 ML VIAL-PF) SQ ONE ×2 (12:27→16:49)
[2022-10-12] MEDS ORDERED: SODIUM CHLORIDE 0.9% 100 ML with ceFAZolin 2,000 MG IV ONE ×2 (16:00)
[2022-10-12] MEDS ORDERED: ACETAMINOPHEN TAB 325 MG TAB PO PRN (17:50)
--- NOTE | 2022-10-12 18:18 | P.EPPROC ---
- EP Procedure Note Electrophysiology Procedure Note: Diagnosis block Status post Bi V pacing with His bundle pacing Extremely high His bundle lead pacing thresholds, progressively increasing Leading to premature battery depletion Procedure Patient was brought to the EP lab in a fasting state. Written informed consent was obtained prior to the procedure Intravenous Kefzol as well as intravenous vancomycin administered Left upper extremity venogram performed 15 mL IV dye injected Stenosed left subclavian axillary junction Later intraoperatively venogram once again performed and innominate vein stenosis also noted Incision made directly over the previous surgical site Spindle-shaped incision made to excise the scar tissue Incision carried down to the level of the generator A lot of scar tissue noted in the pocket Leads were adhered to the scar tissue and and therefore a decision was made not to dissect out the His bundle lead It is quite likely that given the extent of stenosis in the veins in the scar tissue in the pocket, the His bundle lead would not be extractable At the end of the procedure the His bundle lead was capped and secured to the pectoralis muscle Axillary vein access was obtained but the injury plasty wire would not pass through the stenosis Multiple attempts were made and finally passed through the stenosis in the axillary subclavian junction However further attempts at the made for her to pass through the innominate stenosis With great difficulty nasoplasty wire was placed in the right atrium Following that venoplasty was performed with progressive dilator sizes Following venoplasty along 8-Tongan sheath was placed and a guidewire down into the IVC Attempt at left bundle pacing performed Using the chronic His bundle lead position, left bundle pacing was attempted Excellent sites obtained with pace mapping with a W shaped pattern However, following attempts at screw-in lead into the septum, the threshold to begin to rise Multiple attempts were made and multiple sites were tested However be consistently ran into the problem of rising thresholds as the lead was screwed in into the septum and approached the left bundle On several occasions a QRS pattern was noted to the thresholds but started to rise beyond 3 V at 0.5 ms Therefore left bundle pacing was abandoned This is sheath was placed via a 9-1/2-Tongan sheath A coronary sinus catheter was placed in the right atrium Cannulating the coronary sinus was extremely challenging Multiple different sheaths had to be used Finally the His bundle sheath was used and we were able to cannulate the coronary sinus However the coronary sinus os was very tortuous in its first 2-3 cm and finally an Amplatz type sheaths had to be placed However during the exchange the catheter would torque out of the coronary sinus After multiple attempts we were able to stabilize the sheath along with the subselect in sheath in the body of the coronary sinus and the LV lead was placed in the lateral vein After multiple attempts admitted and ablation. Able to place this lead in a very stable position in the lateral vein and screwed with excellent thresholds and without any diaphragmatic stimulation Burst sheaths were successfully removed and the lead was stable in the coronary sinus/lateral vein The lead was secured The chronic His bundle lead was secured The oral generator was explanted The new biventricular pacemaker generator was implanted The pocket was irrigated Antibiotic pouch was placed A second dose of IV antibiotics was administered to the procedure since the total time was almost 5 hours for this very difficult case The wound was then closed in 3 layers and dressed per protocol
[2022-10-12] MEDS ORDERED: Acetaminophen-Codeine 300-30mg TAB PO PRN (18:20)
[2022-10-12] MEDS ORDERED: SODIUM CHLORIDE 0.9% 1,000 ML IV ONE (18:36)
--- NOTE | 2022-10-12 19:08 | XR ---
EXAMINATION TYPE: XR chest 1V portable DATE OF EXAM: 10/12/2022 COMPARISON: 04/28/2020 HISTORY: Check lead placements TECHNIQUE: FINDINGS: Heart and mediastinum are normal. Lungs are clear. Diaphragm is normal. Bony thorax is intact. There is left axillary pacemaker. IMPRESSION: No active cardiopulmonary disease. Left axillary pacemaker appears intact.
[2022-10-12] MEDS: HYDROmorphone 0.5 MG/0.5 ML SYRINGE IVP PRN (20:17)
[2022-10-12] MEDS ORDERED: lisinopriL 10 MG TAB PO SCH (21:00)
[2022-10-12] MEDS ORDERED: PANTOPRAZOLE 40 MG TABLET PO SCH (21:00)
[2022-10-13] MEDS: HYDROmorphone 0.5 MG/0.5 ML SYRINGE IVP PRN (02:51)
[2022-10-13 08:05] VITALS: BP 115/70; PULSE 68; RESP 16; TEMP 97.8
[2022-10-13] MEDS: LACTATED RINGERS 1,000 ML IV SCH (09:45)
--- NOTE | 2022-10-13 10:51 | P.DS ---
Providers Attending physician: Rober Zuñiga Primary care physician: Stated None Hospital Course: Patient is doing well. Minimal swelling at the pacemaker site Mild discomfort in that area mild tenderness On examination Afebrile 97.8F, blood pressure 109/69 mmHg pulse rate in the 60s Heart sounds are normal normal S1 normal S2 Lungs are clear Chest x-ray does not show any evidence for pneumothorax Twelve-lead EKG shows a biventricular paced rhythm Impression Complete heart block High thresholds on the His bundle lead, chronic but progressively increasing Rapid battery depletion on account of this Status post implantation of an LV lead in the lateral vein Very difficult case on account of access into the central circulation, high thresholds in the left bundle area in the septum, very difficult and tortuous anatomy of the coronary sinus os area and past history of ablation within the coronary sinus os for WPW, epicardial, repetitive dislodgment of the Alen sinus sheath on account of this tortuosity Ultimately successful placement of LV lead in excellent position with excellent outcome Today the device was interrogated thresholds were excellent LV offset programmed to 20 ms Proximal LV electrodes used for pacing Plan Anti-inflammatory treatment with Motrin Continue omeprazole Discussed pain management with the patient and his family Discharge home today after lunch after completion of IV antibiotics Follow up in the office in one week in the device clinic Follow-up Dr. Zuñiga in 3 months Plan - Discharge Summary Discharge Rx Participant: No New Discharge Prescriptions: Continue lisinopriL [Zestril] 10 mg PO HS No Action Omeprazole 20 mg PO HS Discharge Medication List Omeprazole 20 mg PO HS 02/01/22 [History] lisinopriL [Zestril] 10 mg PO HS 02/01/22 [History] Follow up Appointment(s)/Referral(s): [facility] [Provider Group] - 10/20/22 3:00 pm (Tuesday. Device check only) Rober Zuñiga MD [STAFF PHYSICIAN] - 10/26/22 1:15 pm (Tuesday) Patient Instructions/Handouts: Pacemaker Generator Change (DC), Cardiac Ablation (GEN)
== END 2022-10-13 12:18 | disposition home or self-care (01) ==
LOC: CATHEP 10:22 → 3SCARD 17:24 → CATHEP 10-13 12:18
PROVIDERS: ATTEND Internal Medicine Clinical Cardiac Electrophysiology
DX: I44.2 Atrioventricular block, complete (principal); I50.9 Heart failure, unspecified; Z45.010 Encounter for checking and testing of cardiac pacemaker pulse generator [battery]
CPT/HCPCS: 33225; 33229; 71045; C1769 ×5; C2621; C1892 ×3; C1730; C1887; C1898; J2250; J3370; J0330; J0461; J2710; J0690 ×3; J2001 ×2; J3010 ×2; J1170 ×3; J2704 ×2; Q9967

== ENCOUNTER → 2024-04-18 | Outpatient (CLI) | payer OTHER ==
--- NOTE | 2024-04-18 12:39 | XR ---
EXAMINATION TYPE: XR chest 2V DATE OF EXAM: 04/18/2024 COMPARISON: 10/12/2022 HISTORY: 39-year-old male D72.829, elevated WBC TECHNIQUE: Frontal and lateral views FINDINGS: Left anterior chest wall pacemaker generator with 2 right atrial, a single right ventricular and key nary sinus leads. Heart normal size. Aorta within normal limits. Mild central bronchial cuffing. No c onsolidation or pleural effusion. IMPRESSION: 4-lead pacemaker generator as above. Mild central bronchial wall thickening could represent bronchiti s or asthma.
--- NOTE | 2024-04-22 16:09 | US ---
EXAMINATION TYPE: US scrotum with doppler. Grayscale and color Doppler Duplex imaging performed of estela pratt scrotum. DATE OF EXAM: 04/18/2024 COMPARISON: NONE CLINICAL INDICATION: Male, 39 years old with history of N50.89 OTHER SPECIFIED DISORDERS OF THE MALE GENIT; Palpable lump inferior left testicle x many years; EXAM MEASUREMENTS: TESTICLES: Right Testicle: 5.5 x 2.8 x 3.8 cm Left Testicle: 4.6 x 2.6 x 3.2 cm EPIDIDYMIS HEAD: Right Epididymis: 1.2 x 0.5 x 0.7 cm Left Epididymis: 0.8 x 1.0 x 0.8 cm Doppler performed to assess for testicular vascularity; good bilateral color flow and waveforms are s een. There is no evidence of testicular torsion. Presence of hydroceles: Left inferior fluid collection at area of palpable with debris within Presence of varicoceles: Left IMPRESSION: 1. No evidence for testicular torsion or testicular mass. 2. Small left hydrocele with debris likely corresponding to patient's palpable abnormality. 3. Left-sided varicocele.
== END | disposition home or self-care (01) ==
LOC: RADUSWWP 11:45
PROVIDERS: ATTEND Family Medicine
DX: N50.89 Other specified disorders of the male genital organs (principal); D72.829 Elevated white blood cell count, unspecified; N43.3 Hydrocele, unspecified; I86.1 Scrotal varices
CPT/HCPCS: 71046; 76870; 93975

== ENCOUNTER 2025-01-25 12:30 | Day surgery (SDC) | payer OTHER ==
[2025-01-23 14:34] VITALS: BMI 26.6
[2025-01-25] MEDS: IV FLUID CONTINUATION 1,000 ML IV ONE (12:25)
[2025-01-25] MEDS: LACTATED RINGERS 1,000 ML IV SCH (13:27)
[2025-01-25 13:30] VITALS: TEMP 97.8
[2025-01-25] MEDS ORDERED: PROPOFOL 10 MG/ML 20 ML VIAL IV ONE (14:06)
--- NOTE | 2025-01-25 14:18 | P.PCN ---
Date of Procedure: 01/25/25 Procedure(s) Performed: BRIEF HISTORY: Patient is a 39-year-old, pleasant, white male scheduled endoscopy as a part evaluation of lungs and history of GERD.. PROCEDURE PERFORMED: Esophagogastroduodenoscopy with biopsy. PREOPERATIVE DIAGNOSIS: Longstanding history of GERD IV sedation per anesthesia. PROCEDURE: After informed consent was obtained, the patient was brought into the endoscopy unit. IV sedation was administered by Anesthesia under continuous monitoring. Initially the Olympus GIF-140 video endoscope was inserted into the mouth. Esophagus intubated without any difficulty. It was gradually advanced into the stomach and duodenum and carefully examined. The bulb and the second part of the duodenum appeared normal. The scope at this time was withdrawn to the stomach, adequately insufflated with air, and upon careful examination, mucosa of the antrum, body, cardia and the fundus appeared normal. The scope was then withdrawn into the esophagus. Small hiatal hernia. The GE junction was located at 39 cm from the incisors. There was a 1 cm tongue of Thapa's appearing mucosa proximal to the GE junction that was biopsied. The rest of the esophagus appeared normal. There were no erosions or ulcerations seen and the patient tolerated the procedure well. IMPRESSION: 1. 1 cm tongue of Thapa's esophagus this proximal to the GE junction s/p biopsy 2. Small hiatal hernia.. RECOMMENDATIONS: The findings of this examination were discussed with the patient as well as his family. He was advised to follow-up with the biopsy results. If the biopsy confirms the presence of Thapa's esophagus he can have repeat upper endoscopy in 3 years..
[2025-01-25 14:27] VITALS: RESP 16
[2025-01-25 14:42] VITALS: BP 101/67; PULSE 65
== END 2025-01-25 15:20 ==
LOC: ORWHC2ENDO 12:30
PROVIDERS: ATTEND Internal Medicine Gastroenterology
DX: K22.70 Barrett's esophagus without dysplasia (principal); K44.9 Diaphragmatic hernia without obstruction or gangrene
CPT/HCPCS: 43239; J2704; 88305; 88313

== ENCOUNTER 2025-02-15 16:33 | Emergency (ER) | payer OTHER ==
--- NOTE | 2025-02-15 17:14 | ED ---
GI Bleed HPI - General Source: patient <Cyn Rubio - Last Filed: 02/15/25 17:13> <Mark Loaiza - Last Filed: 02/15/25 19:16> - General Stated complaint: Abd pain, rectal bleeding Time Seen by Provider: 02/15/25 17:13 - History of Present Illness Initial comments: Quick [id number] male presenting for rectal bleeding x 1 day with associated left lower quadrant abdominal pain. Reports symptoms started around 6 AM this morning. Reports he had several episodes of nonbloody diarrhea, then reports bright red jelly looking blood in stool. He has never had this before. He had an endoscopy 2 weeks ago and was diagnosed with Thapa's esophagus. (RamiroCyn) - Related Data Home Medications Medication Instructions Recorded Confirmed Omeprazole 20 mg PO HS 02/01/22 01/25/25 lisinopriL [Zestril] 10 mg PO HS 02/01/22 01/25/25 Allergies Allergy/AdvReac Type Severity Reaction Status Date / Time No Known Allergies Allergy Verified 02/15/25 17:13 Review of Systems ROS Other: All systems not noted in ROS Statement are negative. <Cyn Rubio - Last Filed: 02/15/25 17:13> ROS Other: All systems not noted in ROS Statement are negative. <Mark Loaiza - Last Filed: 02/15/25 19:16> ROS Statement: Those systems with pertinent positive or pertinent negative responses have been documented in the HPI. 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, Last Myocardial Infarction Date:: 2011 History of Any Multi-Drug Resistant Organisms: None Reported Past Surgical History: Pacemaker Additional Past Surgical History / Comment(s): Pacemaker, Past Anesthesia/Blood Transfusion Reactions: No Reported Reaction Type of Cardiac Device: Permanent Pacemaker Device Placement Date:: 2011 Smoking Status: Current every day smoker - Past Family History Mother Family Medical History: No Reported History Sister(s) Family Medical History: Cancer <Amalia Rubiona - Last Filed: 02/15/25 17:13> General Exam <RubioCyn - Last Filed: 02/15/25 17:13> - General Exam Comments Initial Comments: Visual Physical Exam General: Well-appearing, nontoxic, no acute distress. Head: Normocephalic, atraumatic Eyes: PERRLA, EOMI ENT: Airway patent Chest: Nonlabored breathing Skin: No visual rash, normal skin tone Neuro: Alert and oriented 3 Musculoskeletal: No gross abnormalities (Cyn Rubio) Course Vital Signs 02/15/25 17:05 Temperature 98.8 F Pulse Rate 74 Respiratory 17 Rate Blood Pressure 123/82 O2 Sat by Pulse 97 Oximetry Medical Decision Making <Cyn Rubio - Last Filed: 02/15/25 17:13> - Lab Data Result diagrams: 02/15/25 17:12 02/15/25 17:12 <Mark Loaiza - Last Filed: 02/15/25 19:16> - Medical Decision Making I completed the quick note portion of this chart signed Cyn Rubio PA-C (Cyn Rubio) - Lab Data Lab Results 02/15/25 02/15/25 02/15/25 Range/Units 17:12 17:12 17:12 WBC 16.9 H (3.8-10.6) k/uL RBC 5.77 (4.30-5.90) m/uL Hgb 18.4 H (13.0-17.5) gm/dL Hct 53.0 (39.0-53.0) % MCV 91.8 (80.0-100.0) fL MCH 31.8 (25.0-35.0) pg MCHC 34.7 (31.0-37.0) g/dL RDW 11.8 (11.5-15.5) % Plt Count 253 (150-450) k/uL MPV 7.3 Neutrophils % 80 % Lymphocytes % 12 % Monocytes % 5 % Eosinophils % 1 % Basophils % 0 % Neutrophils # 13.5 H (1.3-7.7) k/uL Lymphocytes # 2.1 (1.0-4.8) k/uL Monocytes # 0.9 (0-1.0) k/uL Eosinophils # 0.2 (0-0.7) k/uL Basophils # 0.1 (0-0.2) k/uL Sodium 138 (137-145) mmol/L Potassium 4.6 (3.5-5.1) mmol/L Chloride 105 (98-107) mmol/L Carbon Dioxide 26 (22-30) mmol/L Anion Gap 7 mmol/L BUN 15 (9-20) mg/dL Creatinine 0.71 (0.66-1.25) mg/dL Est GFR (CKD-EPI)AfAm >90 (>60 ml/min/1.73 sqM) Est GFR (CKD-EPI)NonAf >90 (>60 ml/min/1.73 sqM) Glucose 95 (74-99) mg/dL Plasma Lactic Acid Ethan (0.7-2.0) mmol/L Calcium 9.7 (8.4-10.2) mg/dL Total Bilirubin 0.8 (0.2-1.3) mg/dL AST 23 (17-59) U/L ALT 24 (4-49) U/L Alkaline Phosphatase 57 (38-126) U/L Total Protein 7.6 (6.3-8.2) g/dL Albumin 5.0 (3.5-5.0) g/dL Lipase 86 (23-300) U/L Urine Color Yellow Urine Appearance Clear (Clear) Urine pH 6.5 (5.0-8.0) Ur Specific [place] 1.025 (1.001-1.035) Urine Protein Negative (Negative) Urine Glucose (UA) Negative (Negative) Urine Ketones Negative (Negative) Urine Blood Negative (Negative) Urine Nitrite Negative (Negative) Urine Bilirubin Negative (Negative) Urine Urobilinogen 2.0 (<2.0) mg/dL Ur Leukocyte Esterase Negative (Negative) 02/15/25 Range/Units 17:12 WBC (3.8-10.6) k/uL RBC (4.30-5.90) m/uL Hgb (13.0-17.5) gm/dL Hct (39.0-53.0) % MCV (80.0-100.0) fL MCH (25.0-35.0) pg MCHC (31.0-37.0) g/dL RDW (11.5-15.5) % Plt Count (150-450) k/uL MPV Neutrophils % % Lymphocytes % % Monocytes % % Eosinophils % % Basophils % % Neutrophils # (1.3-7.7) k/uL Lymphocytes # (1.0-4.8) k/uL Monocytes # (0-1.0) k/uL Eosinophils # (0-0.7) k/uL Basophils # (0-0.2) k/uL Sodium (137-145) mmol/L Potassium (3.5-5.1) mmol/L Chloride (98-107) mmol/L Carbon Dioxide (22-30) mmol/L Anion Gap mmol/L BUN (9-20) mg/dL Creatinine (0.66-1.25) mg/dL Est GFR (CKD-EPI)AfAm (>60 ml/min/1.73 sqM) Est GFR (CKD-EPI)NonAf (>60 ml/min/1.73 sqM) Glucose (74-99) mg/dL Plasma Lactic Acid Ethan 1.3 (0.7-2.0) mmol/L Calcium (8.4-10.2) mg/dL Total Bilirubin (0.2-1.3) mg/dL AST (17-59) U/L ALT (4-49) U/L Alkaline Phosphatase (38-126) U/L Total Protein (6.3-8.2) g/dL Albumin (3.5-5.0) g/dL Lipase (23-300) U/L Urine Color Urine Appearance (Clear) Urine pH (5.0-8.0) Ur Specific [place] (1.001-1.035) Urine Protein (Negative) Urine Glucose (UA) (Negative) Urine Ketones (Negative) Urine Blood (Negative) Urine Nitrite (Negative) Urine Bilirubin (Negative) Urine Urobilinogen (<2.0) mg/dL Ur Leukocyte Esterase (Negative) Disposition <Cyn Rubio - Last Filed: 02/15/25 17:13> Is patient prescribed a controlled substance at d/c from ED?: No Time of Disposition: 18:00 <Mark Loaiza - Last Filed: 02/15/25 19:16> Clinical Impression: Colitis, GI bleed Disposition: HOME SELF-CARE Condition: Good Instructions (If sedation given, give patient instructions): Colitis (ED), Gastrointestinal Bleeding (ED) Referrals: Carol Lewis MD [Primary Care Provider] - 1-2 days Roya Harrison MD [STAFF PHYSICIAN] - 1-2 days
[2025-02-15 18:24] LABS: Appearance,Urine Clear (Clear); Bilirubin,Urine Negative (Negative); Blood,Urine Negative (Negative); Color,Urine Yellow; Glucose,Urine (UA) Negative (Negative); Ketones,Urine Negative (Negative); Leukocyte Esterase,Urine Negative (Negative); Nitrite,Urine Negative (Negative); PH, Urine 6.5 (5.0-8.0); Protein,Urine Negative (Negative); Specific Gravity,Urine 1.025 (1.001-1.035)
[2025-02-15 18:35] LABS: Basophils # (A) 0.1 k/uL (0-0.2); Basophils % (A) 0 %; Eosinophils # (A) 0.2 k/uL (0-0.7); Eosinophils % (A) 1 %; HGB 18.4 gm/dL (13.0-17.5); Lymphocytes # (A) 2.1 k/uL (1.0-4.8); Lymphocytes % (A) 12 %; MCH 31.8 pg (25.0-35.0); MCHC 34.7 g/dL (31.0-37.0); MCV 91.8 fL (80.0-100.0); Mean Platelet Volume 7.3; Monocytes # (A) 0.9 k/uL (0-1.0); Monocytes % (A) 5 %; Neutrophils # (A) 13.5 k/uL (1.3-7.7); Neutrophils % (A) 80 %; Platelet Count 253 k/uL (150-450); RBC 5.77 m/uL (4.30-5.90); RDW 11.8 % (11.5-15.5); WBC 16.9 k/uL (3.8-10.6)
[2025-02-15 18:39] LABS: ALT 24 U/L (4-49); AST 23 U/L (17-59); African American GFR (CKD) >90 (>60 ml/min/1.73 sqM); Alkaline Phosphatase 57 U/L (38-126); Anion Gap 7 mmol/L; Blood Urea Nitrogen 15 mg/dL (9-20); Calcium 9.7 mg/dL (8.4-10.2); Carbon Dioxide 26 mmol/L (22-30); Chloride 105 mmol/L (98-107); Glucose 95 mg/dL (74-99); Lipase 86 U/L (23-300); Non-African American GFR(CKD) >90 (>60 ml/min/1.73 sqM); Potassium 4.6 mmol/L (3.5-5.1); Sodium 138 mmol/L (137-145); Total Bilirubin 0.8 mg/dL (0.2-1.3); Total Protein 7.6 g/dL (6.3-8.2)
--- NOTE | 2025-02-15 19:10 | CT ---
EXAMINATION TYPE: CT abdomen pelvis w con DATE OF EXAM: 02/15/2025 6:50 PM COMPARISON: None CLINICAL INDICATION: Male, 39 years old with history of Left lower abdominal pain with rectal bleedin g; Left lower abdominal pain with rectal bleeding TECHNIQUE: Axial CT abdomen pelvis w con;Sagittal and coronal reformats were created on a separate w orkstation. Contrast used:100ml mL of Isovue 300 with IV Contrast, (none if empty) Oral contrast used: with Oral Contrast (none if empty) CT DLP: 895.8 mGycm, Automated exposure control for dose reduction was used. FINDINGS: LOWER CHEST: Cardiac conduction leads partially visualized. Surgical clips partially visualized. ABDOMEN LIVER: Unremarkable GALLBLADDER AND BILE DUCTS: Unremarkable. PANCREAS: Unremarkable. SPLEEN: Unremarkable. ADRENAL GLANDS: Unremarkable. KIDNEYS AND URETERS: No evidence of hydronephrosis or renal calculus. The ureters are unremarkable. PELVIS BLADDER: No evidence for wall thickening or mass given limitations of exam. REPRODUCTIVE: Unremarkable. ABDOMEN & PELVIS STOMACH AND BOWEL: No evidence of bowel obstruction. Circumferential wall prominence of the rectum an d sigmoid colon and descending colon. There is mild hyperemia suggested in the left lower quadrant se angélica 201 image 62. PERITONEUM/RETROPERITONEUM: No evidence of pneumoperitoneum or free fluid. VASCULATURE: No evidence of aortic aneurysm. MUSCULOSKELETAL: No acute osseous abnormalities LYMPH NODES: No gross evidence for lymphadenopathy. SOFT TISSUE/ABDOMINAL WALL: Unremarkable IMPRESSION: Mild colitis of the sigmoid colon and descending colon. No organizing fluid collection or free air. [facility], , 02/15/2025 7:08 PM
[2025-02-15 19:37] VITALS: BP 127/87; PULSE 69; RESP 16; TEMP 97.9
== END 2025-02-15 19:36 | disposition home or self-care (01) ==
LOC: EC 16:33
DX: K52.9 Noninfective gastroenteritis and colitis, unspecified (principal); K22.70 Barrett's esophagus without dysplasia; F17.200 Nicotine dependence, unspecified, uncomplicated
CPT/HCPCS: 36415; 80053; 83605; 83690; 85025; 81003; 74177; 99284; Q9967

== ENCOUNTER 2025-03-18 08:27 | Emergency (ER) | payer OTHER ==
[2025-03-18 08:41] VITALS: TEMP 97.7
[2025-03-18 09:40] VITALS: PULSE 68; RESP 16
--- NOTE | 2025-03-18 10:07 | XR ---
EXAMINATION TYPE: XR knee complete LT DATE OF EXAM: 03/18/2025 9:46 AM COMPARISON: None. CLINICAL INDICATION: Male, 40 years old with history of pain, pain TECHNIQUE: Three views of the left knee are obtained. FINDINGS: There is no acute fracture/dislocation evident in left knee. The tri-compartment joint sp aces appear within normal limits. The overlying soft tissue appears unremarkable. IMPRESSION: There is no acute fracture or dislocation in the left knee. [facility], , 03/18/2025 10:04 AM
--- NOTE | 2025-03-18 10:47 | ED ---
Extremity Problem HPI - General Chief complaint: Extremity Problem,Nontraumatic Stated complaint: left knee pain Time Seen by Provider: 03/18/25 08:43 Source: patient, RN notes reviewed Mode of arrival: ambulatory Limitations: no limitations - History of Present Illness Initial comments: 40-year-old male presents emerged from chief complaint of left knee pain. Patient states that it started over the weekend states that he was moving somebody and states he has been on his knees quite a bit. Patient states he felt some popping, clicking states has been swelling across his kneecap. Patient denies any other associated symptoms no prior surgeries. - Related Data Home Medications Medication Instructions Recorded Confirmed Omeprazole 20 mg PO HS 02/01/22 01/25/25 lisinopriL [Zestril] 10 mg PO HS 02/01/22 01/25/25 Previous Rx's Medication Instructions Recorded predniSONE 50 mg PO DAILY #5 tab 03/18/25 Allergies Allergy/AdvReac Type Severity Reaction Status Date / Time No Known Allergies Allergy Verified 03/18/25 08:41 Review of Systems ROS Statement: Those systems with pertinent positive or pertinent negative responses have been documented in the HPI. ROS Other: All systems not noted in ROS Statement are negative. 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, Last Myocardial Infarction Date:: 2011 History of Any Multi-Drug Resistant Organisms: None Reported Past Surgical History: Pacemaker Additional Past Surgical History / Comment(s): Pacemaker, Past Anesthesia/Blood Transfusion Reactions: No Reported Reaction Type of Cardiac Device: Permanent Pacemaker Device Placement Date:: 2011 Past Psychological History: No Psychological Hx Reported Smoking Status: Current every day smoker Past Alcohol Use History: None Reported Past Drug Use History: Marijuana - Past Family History Mother Family Medical History: No Reported History Sister(s) Family Medical History: Cancer General Exam Limitations: no limitations General appearance: alert, in no apparent distress Head exam: Present: atraumatic, normocephalic, normal inspection Respiratory exam: Present: normal lung sounds bilaterally. Absent: respiratory distress, wheezes, rales, rhonchi, stridor Cardiovascular Exam: Present: regular rate, normal rhythm, normal heart sounds. Absent: systolic murmur, diastolic murmur, rubs, gallop, clicks Extremities exam: Present: other (Left knee full range of motion with minimal scum for neurovascular intact there is some fluid noted, anterior tenderness.) Course Vital Signs 03/18/25 03/18/25 08:40 08:41 Temperature 97.7 F Pulse Rate 77 68 Respiratory 18 16 Rate Blood Pressure 113/73 130/68 O2 Sat by Pulse 98 98 Oximetry Medical Decision Making - Medical Decision Making Was pt. sent in by a medical professional or institution ([facility], TIE [employer], urgent care, hospital, or halfway...) When possible be specific @ -No Did you speak to anyone other than the patient for history (EMS, parent, family, police, friend...)? What history was obtained from this source @ -No Did you review nursing and triage notes (agree or disagree)? Why? @ -I reviewed and agree with nursing and triage notes Were old charts reviewed (outside hosp., previous admission, EMS record, old EKG, old radiological studies, urgent care reports/EKG's, halfway records)? Report findings @ -No old charts were reviewed Differential Diagnosis (chest pain, altered mental status, abdominal pain women, abdominal pain men, vaginal bleeding, weakness, fever, dyspnea, syncope, headache, dizziness, GI bleed, back pain, seizure, CVA, palpatations, mental h ealth, musculoskeletal)? @ -Knee contusion, leg fracture, pain, bursitis EKG interpreted by me (3pts min.). @ -None X-rays interpreted by me (1pt min.). @ -X-ray left knee no acute osseous abnormality. CT interpreted by me (1pt min.). @ -None done U/S interpreted by me (1pt. min.). @ -None done What testing was considered but not performed or refused? (CT, X-rays, U/S, labs)? Why? @ -None What meds were considered but not given or refused? Why? @ -None Did you discuss the management of the patient with other professionals (professionals i.e. [facility], TIE UP WORKER, lab, RT, psych nurse, social worker masters, [employer], teacher, [employer] officer, lead case manager)? Give summary @ -No Was smoking cessation discussed for >3mins.? @ -No Was critical care preformed (if so, how long)? @ -No Were there social determinants of health that impacted care today? How? (Homelessness, low income, unemployed, alcoholism, drug addiction, transportation, low edu. Level, literacy, decrease access to med. care, snf, rehab)? @ -No Was there de-escalation of care discussed even if they declined (Discuss DNR or withdrawal of care, Hospice)? DNR status @ -No What co-morbidities impacted this encounter? (DM, HTN, Smoking, COPD, CAD, Cancer, CVA, ARF, Chemo, Hep., AIDS, mental health diagnosis, sleep apnea, morbid obesity)? @ -None Was patient admitted / discharged? Hospital course, mention meds given and route, prescriptions, significant lab abnormalities, going to OR and other pertinent info. @ -Discharge patient has knee pain, bursitis. Patient will be discharged in stable condition return parameters porter. Undiagnosed new problem with uncertain prognosis? @ -No Drug Therapy requiring intensive monitoring for toxicity (Heparin, Nitro, Insulin, Cardizem)? @ -No Were any procedures done? @ -No Diagnosis/symptom? @Knee pain, bursitis Acute, or Chronic, or Acute on Chronic? @ -Acute Uncomplicated (without systemic symptoms) or Complicated (systemic symptoms)? @ -Uncomplicated Side effects of treatment? @ -No Exacerbation, Progression, or Severe Exacerbation? @ -No Poses a threat to life or bodily function? How? (Chest pain, [place], [place], pneumonia, PE, COPD, DKA, ARF, appy, cholecystitis, CVA, Diverticulitis, Homicidal, Suicidal, threat to staff... and all critical care pts) @ -No Disposition Clinical Impression: Bursitis, knee Disposition: HOME SELF-CARE Condition: Stable Instructions (If sedation given, give patient instructions): Knee Pain (ED), Swollen Knee Joint (ED) Additional Instructions: Please return to the Emergency Department if symptoms worsen or any other concerns. Prescriptions: predniSONE 50 mg PO DAILY #5 tab Is patient prescribed a controlled substance at d/c from ED?: No Referrals: Carol Lewis MD [Primary Care Provider] - 1-2 days Ankita Diaz [Doctor of Osteopathic Medicine] - 1-2 days Time of Disposition: 10:47
[2025-03-18 11:04] VITALS: BP 150/68
== END 2025-03-18 11:04 | disposition home or self-care (01) ==
LOC: EC 08:27
DX: M70.52 Other bursitis of knee, left knee (principal); F17.200 Nicotine dependence, unspecified, uncomplicated
CPT/HCPCS: 99283